=== PATIENT | male | born 1945 ===

== ENCOUNTER → 2021-10-27 03:07 | Outpatient (CLI) | payer MEDICARE, SELFPAY ==
[2021-10-27 17:26] LABS: SARS-CoV-2 RNA PCR Negative
== END ==
PROVIDERS: PCP Family Medicine; Visit Provider Internal Medicine Gastroenterology
DX: Z01.812 Encounter for preprocedural laboratory examination (principal); Z20.822 Contact with and (suspected) exposure to COVID-19
CPT/HCPCS: C9803; U0003; U0005

== ENCOUNTER 2021-10-30 00:34 | Day surgery (SDC) | payer MEDICARE, SELFPAY ==
--- NOTE | 2021-10-30 08:50 | WPDGICN ---
Assessment and Plan Assessment and plan (1) History of colon polyps: Code(s): Z86.010 - Personal history of colonic polyps Status: Acute Assessment and Plan: Patient has had a prior history of colon polyps. Most recently 2015. Plan is for surveillance exams at about every 5 year intervals. (2) Family history of colon cancer in father: Code(s): Z80.0 - Family history of malignant neoplasm of digestive organs Status: Acute Assessment and Plan: Patient's father had colon cancer. For this reason screening colonoscopy advised now and at 5 year intervals in the future. GI Consult Note Consult date/time: 10/30/21 08:50 HPI: Robbie Brewer is a 76 year old male Presents for screening colonoscopy. Patient has a prior history of colon polyps. Family history is significant his mother had colon cancer. Patient's most recent colonoscopy 5 years ago revealed adenomatous colon polyp. Patient states his current weight appetite bowel movements are normal. He denies any blood in his stools he presents today for screening examination. Past medical history is significant for COPD. He has a history of a pacemaker as well. 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 Rhinitis Family History Family History Mother Patient's mother is , Onset Age: 56 Carcinoma of colon Sibling Family history of cardiovascular disease Social History Social History Smoking status: Former smoker Tobacco type: cigarettes Smoking end date: 09/13/72 Alcohol intake: current Alcohol use details: 1-2 per month Living arrangements: with family Spiritual care concerns: No Meds Home Medications and Allergies Home Medications Medication Instructions Recorded Confirmed Type Lactobacills gasseri-Bifidobac 1 cap PO DAILY 02/26/21 10/17/21 History bifidum,longum 1.5 billion cell capsule albuterol sulfate 2.5 mg/0.5 mL 2.5 mg INHALATION Q20M 02/26/21 10/17/21 History solution for nebulization amlodipine 5 mg tablet 5 mg PO DAILY tablet 02/26/21 10/17/21 History ascorbic acid (vitamin C) 500 mg 500 mg PO DAILY 02/26/21 10/17/21 History capsule budesonide-formoterol HFA 160 2 puff INHALATION Q12H #10.2 gm 02/26/21 10/17/21 Rx mcg-4.5 mcg/actuation aerosol inhaler fluticasone propionate 50 1 spray INTRANASAL DAILY 02/26/21 10/17/21 History mcg/actuation nasal spray,suspension guaifenesin 600 mg tablet, 600 mg PO BID 02/26/21 10/17/21 History extended release 12 hr lisinopril 20 2 tablet PO DAILY tablet 02/26/21 10/17/21 History mg-hydrochlorothiazide 12.5 mg tablet ispistus-hzy-ukunx acid 300 1 tablet PO DAILY 02/26/21 10/17/21 History mcg-lycopene 600 mcg-lutein 300 mcg tablet omega-3 fatty acids 1,000 mg 1,000 mg PO DAILY 02/26/21 10/17/21 History capsule ipratropium-albuterol 3 ml INHALATION BID 10/17/21 10/17/21 History loratadine [Claritin] 10 mg PO DAILY 10/17/21 10/17/21 History Allergies Allergy/AdvReac Type Severity Reaction Status Date / Time No Known Allergies Allergy Mild Unverified 10/17/21 09:40 Exam Narrative: Physical exam reveals patient to be alert. Vital signs stable. HEENT exam is unremarkable. Patient is anicteric. Lungs are clear to auscultation and percussion. Heart is without murmur or extra sounds. Abdominal exam bowel sounds are present soft nontender with no organomegaly. Digital external rectal exam is normal.
[2021-10-30 08:57] VITALS: BP 152/65; PULSE 64; RESP 18; TEMP 36.8; O2SAT 98; BMI 30.9
[2021-10-30] MEDS: LACTATED RINGERS 1,000 ML 150 ML IV CONT (09:06)
--- NOTE | 2021-10-30 09:28 | WPDANESEPPF ---
Anes - Initial Pre Proc Eval Procedure: Operation Date: 10/30/21 10:00 Proposed Procedures p Screening Colonoscopy - Brodie Martínez MD Date/Time: 10/30/21 09:28 Surgeon: Brodie Martínez MD Pre Op Diagnosis: hx of colon polyps Patient Data Age: 76 Gender: M Height: 1.78 m Weight: 97.8 kg Last Vital Signs Temp 36.8 C 10/30/21 08:57 Pulse 64 10/30/21 08:57 Resp 18 10/30/21 08:57 BP 152/65 H 10/30/21 08:57 Pulse Ox 98 10/30/21 08:57 Allergies Allergy/AdvReac Type Severity Reaction Status Date / Time No Known Allergies Allergy Mild Verified 10/30/21 08:56 Home Medications Medication Instructions Recorded Confirmed Type Lactobacills gasseri-Bifidobac 1 cap PO DAILY 02/26/21 10/17/21 History bifidum,longum 1.5 billion cell capsule albuterol sulfate 2.5 mg/0.5 mL 2.5 mg INHALATION Q20M 02/26/21 10/17/21 History solution for nebulization amlodipine 5 mg tablet 5 mg PO DAILY tablet 02/26/21 10/17/21 History ascorbic acid (vitamin C) 500 mg 500 mg PO DAILY 02/26/21 10/17/21 History capsule budesonide-formoterol HFA 160 2 puff INHALATION Q12H #10.2 gm 02/26/21 10/17/21 Rx mcg-4.5 mcg/actuation aerosol inhaler fluticasone propionate 50 1 spray INTRANASAL DAILY 02/26/21 10/17/21 History mcg/actuation nasal spray,suspension guaifenesin 600 mg tablet, 600 mg PO BID 02/26/21 10/17/21 History extended release 12 hr lisinopril 20 2 tablet PO DAILY tablet 02/26/21 10/17/21 History mg-hydrochlorothiazide 12.5 mg tablet yctovkjj-dzk-bxzle acid 300 1 tablet PO DAILY 02/26/21 10/17/21 History mcg-lycopene 600 mcg-lutein 300 mcg tablet omega-3 fatty acids 1,000 mg 1,000 mg PO DAILY 02/26/21 10/17/21 History capsule ipratropium-albuterol 3 ml INHALATION BID 10/17/21 10/17/21 History loratadine [Claritin] 10 mg PO DAILY 10/17/21 10/17/21 History Patient hx anesthesia problems: none Family hx anesthesia problems: none Results Review: All pre-operative results and documents have been reviewed as part of the pre-operative evaluation. 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 Pacemaker Rhinitis Family History Family History Mother Patient's mother is , Onset Age: 56 Carcinoma of colon Sibling Family history of cardiovascular disease Social History Social History Smoking status: Former smoker Tobacco type: cigarettes Smoking end date: 09/13/72 Alcohol intake: current Alcohol use details: 1-2 per month Living arrangements: with family Spiritual care concerns: No Anes - Eval Final PreProcedure Day of Procedure 10/30/21 09:28 Patient weight: obese Heart: regular rate and rhythm (paced) Lungs: clear to auscultation Airway: Mallampati scale class II Neurological: alert and oriented Last oral intake: >/= 8 hours ASA classification: III Emergent: no Anesthetic plan: proceed Anesthesia type and monitoring: general GIVS and standard monitoring Results Review: All pre-operative results and documents have been reviewed as part of the pre-operative evaluation. Informed Consent: The patient's anesthetic plan and its attendant risks and benefits were discussed with the patient/family/POA. Questions were solicited and answers provided to the satisfaction of the patient/family/POA.
[2021-10-30 10:30] VITALS: BP 87/52; PULSE 65; RESP 22; O2SAT 95
[2021-10-30 10:40] VITALS: BP 90/58; PULSE 65; RESP 22; O2SAT 95
[2021-10-30 10:50] VITALS: BP 109/58; PULSE 65; RESP 19; O2SAT 96
== END 2021-10-30 10:56 | disposition home or self-care (01) ==
PROVIDERS: PCP Family Medicine; Visit Provider Internal Medicine Gastroenterology
PROC: 0DJD8ZZ Inspection of Lower Intestinal Tract, Via Natural or Artificial Opening Endoscopic (ICD-10-PCS; CPT 45378; principal; 2021-10-30 10:00)
DX: Z12.11 Encounter for screening for malignant neoplasm of colon (principal); D12.2 Benign neoplasm of ascending colon; D12.3 Benign neoplasm of transverse colon; D12.5 Benign neoplasm of sigmoid colon; D12.8 Benign neoplasm of rectum; K63.5 Polyp of colon; K64.8 Other hemorrhoids; K57.30 Diverticulosis of large intestine without perforation or abscess without bleeding; Z80.0 Family history of malignant neoplasm of digestive organs; J44.9 Chronic obstructive pulmonary disease, unspecified; G47.33 Obstructive sleep apnea (adult) (pediatric); Z87.891 Personal history of nicotine dependence; Z79.51 Long term (current) use of inhaled steroids; Z95.0 Presence of cardiac pacemaker; E66.9 Obesity, unspecified; Z68.30 Body mass index [BMI] 30.0-30.9, adult
CPT/HCPCS: 45385; 88305; C9803; J2704; J7120; U0003; U0005